=== PATIENT | female | born 1940 | race Asian ===

== ENCOUNTER 2018-11-26 11:57 | Outpatient (CLI) | payer MEDICARE, OTHER ==
[2018-11-26 18:57] LABS: ALBUMIN 3.9 g/dL (3.2-5.5); ALBUMIN/GLOBULIN RATIO 1.1 (1.0-2.2); BILIRUBIN,TOTAL 0.8 mg/dL (0.2-1.0); CREATININE 0.6 mg/dL (0.4-1.0); TOTAL PROTEIN 7.3 g/dL (6.7-8.2)
[2018-11-26 20:42] LABS: HB2 TOTAL 13.1 g/dL; HEMOGLOBIN A1C 0.75 g/dL; HEMOGLOBIN A1C % 7.4 % (4.6-6.2)
== END 2018-11-26 11:58 | disposition home or self-care (01) ==
LOC: LAB.WCP 11:57
PROVIDERS: ATTEND Family Medicine
DX: I10 Essential (primary) hypertension (principal); E11.9 Type 2 diabetes mellitus without complications; R71.8 Other abnormality of red blood cells; I71.2 Thoracic aortic aneurysm, without rupture
CPT/HCPCS: 36415; 80053; 83036

== ENCOUNTER 2018-12-19 13:08 | Outpatient (CLI) | payer MEDICARE, OTHER ==
--- NOTE | 2018-12-19 17:03 | Mammography Report ---
Reason: MULTINODULAR GOITER Procedure Date: 12/19/2018 Accession Number: [id number] / [id number] Procedure: MGN - Screening Mammo Dig Bilat CPT Code: FULL RESULT: EXAM: Screening Mammo Dig Bilat DATE: 12/19/2018 1:31 PM CLINICAL HISTORY: Routine screening. No reported personal or family history of breast cancer. TECHNIQUE: Bilateral CC and MLO views were obtained. COMPARISON: 12/01/2012 through 02/07/2010 FINDINGS: The breasts demonstrate scattered fibroglandular densities bilaterally. Bilateral breasts: There are no suspicious masses, calcifications or areas of distortion. IMPRESSION: Negative examination RECOMMENDATION: Routine annual screening unless otherwise clinically indicated. BI-RADS CATEGORY 1: Negative STANDARD QUALIFYING STATEMENTS: 1. This examination was reviewed with the aid of Computer-Aided Detection (CAD). 2. A negative or benign imaging report should not preclude biopsy if clinically suspicious findings are present. 3. Dense breasts may obscure an underlying neoplasm. 4. This examination was reviewed without the aid of 3D breast imaging (tomosynthesis).
== END 2018-12-19 13:09 | disposition home or self-care (01) ==
LOC: DI.N 13:08
DX: Z12.31 Encounter for screening mammogram for malignant neoplasm of breast (principal)
CPT/HCPCS: 77067

== ENCOUNTER 2019-02-26 22:42 | Outpatient (CLI) | payer MEDICARE, OTHER ==
--- NOTE | 2019-02-27 13:27 | Ultrasound Report ---
Reason: MULTINODULAR GOITER Procedure Date: 02/26/2019 Accession Number: [id number] / [id number] Procedure: US - Head or Neck Soft Tissue CPT Code: FULL RESULT: EXAM: THYROID ULTRASOUND EXAM DATE: 02/26/2019 10:52 PM. CLINICAL HISTORY: Multinodular goiter. COMPARISON: THYROID 05/26/2013 11:00 AM. TECHNIQUE: Real time sonographic imaging of the thyroid was performed by the wind farm designer. Multiple metals sales representative static images were saved for review. FINDINGS: THYROID GLAND: Right Lobe: 3.8 x 1.5 x 1.5 cm, volume 4.3 cc. Heterogeneous appearance of the thyroid parenchyma. Right Lobe Nodules: There is a confluent cluster of nodules in the superior pole, possibly a single 1.2 x 0.6 cm nodule with heterogeneous echotexture, dominant solid component and vascularity. Inferior pole 3 mm calcification is also noted. Left Lobe: 3.7 x 1.1 x 1.4 cm, volume 3.2 cc. Normal background echotexture. Left Lobe Nodules: Hypoechoic heterogeneous 1.0 x 0.6 x 1.0 cm nodule and hypoechoic heterogeneous 1.0 x 0.8 x 1.0 cm nodule. Isthmus: 0.2 cm AP. Isthmic Nodules: None. LYMPH NODES: No adenopathy demonstrated in the central or lateral compartment. OTHER: None. IMPRESSION: Heterogeneous appearance of the right thyroid lobe with an ill-defined upper pole nodule with a maximal dimension of at least 1.2 cm. Based on this morphologic appearance and heterogeneity of the right thyroid lobe without similar findings on the left, I recommend soft tissue sampling by ultrasound-guided FNA. Management recommendations are based on 2015 [place] [employer] Management Guidelines for Adult Patients with Thyroid Nodules and Differentiated Thyroid Cancer. RADIA
== END 2019-02-26 22:43 | disposition home or self-care (01) ==
LOC: DI 22:42
PROVIDERS: ATTEND Family Medicine
DX: E04.2 Nontoxic multinodular goiter (principal)
CPT/HCPCS: 76536

== ENCOUNTER 2019-05-01 13:20 | Outpatient (CLI) | payer MEDICARE, OTHER ==
[~2019-05-01 13:20] MED LIST: BUFFERED LIDOCAINE 10 ML SYRINGE ONE
[2019-05-01] MEDS ORDERED: BUFFERED LIDOCAINE 10 ML SYRINGE ONE (14:25)
[2019-05-01] MEDS ORDERED: BUFFERED LIDOCAINE 10 ML SYRINGE IU ONE (18:19)
--- NOTE | 2019-05-02 09:52 | Ultrasound Report ---
Reason: MULTINODULAR GOITER W/RECOMMENDATION FOR FNAB Procedure Date: 05/01/2019 Accession Number: [id number] / [id number] Procedure: US - FNA Bx w/US Gnd les CPT Code: 27223 FULL RESULT: EXAM: Thyroid Fine Needle Aspiration EXAM DATE: 05/01/2019 03:13 PM. CLINICAL HISTORY: Multinodular goiter w/recommendation for FNAB. COMPARISON: None. TECHNIQUE: The risks, benefits, and alternatives of the procedure were discussed with the patient. All questions were answered. Written and verbal consent were obtained. A site was marked over the right thyroid gland in question under live sonographic evaluation, then subsequently prepped and draped in a sterile manner. Local anesthesia was performed with 1% lidocaine. A total of 4 22 gauge fine-needle aspirates/passes were performed through the suspicious portion of the multinodular right thyroid gland in question, then passed to the grey percher for preparation. Estimated blood loss was 0 mL. Sonographic images demonstrate needle placement within suspicious nodular portion in question. FINDINGS IMPRESSION: Right thyroid gland FNA. RADIA
== END 2019-05-01 13:21 | disposition home or self-care (01) ==
LOC: DI 13:20
PROVIDERS: ATTEND Surgery
DX: E04.2 Nontoxic multinodular goiter (principal)
CPT/HCPCS: 10005

== ENCOUNTER 2019-09-24 09:58 | Outpatient (CLI) | payer MEDICARE, OTHER ==
--- NOTE | 2019-09-24 18:44 | XRAY Report ---
Reason: RIGHT SHOULDER PAIN Procedure Date: 09/24/2019 Accession Number: [id number] / [id number] Procedure: WCP - Shoulder 2 View RT CPT Code: Final Report FULL RESULT: EXAM: RIGHT SHOULDER RADIOGRAPHY EXAM DATE: 09/24/2019 09:58 AM. CLINICAL HISTORY: Chronic right shoulder pain. COMPARISON: SHOULDER 2 VIEW RT 10/11/2016 8:58 AM. TECHNIQUE: 2 views. FINDINGS: Bones: No acute traumatic or destructive bony abnormality. Lateral clavicle resection again noted. Joints: No dislocation. Marginal spurring at the glenohumeral joint. Soft tissues: The visualized hemithorax is unremarkable. No soft tissue calcification. IMPRESSION: 1. Degenerative spurring of the glenohumeral joint. 2. Lateral clavicle resection again noted. RADIA
--- NOTE | 2019-09-24 18:47 | XRAY Report ---
Reason: LEFT SHOULDER PAIN Procedure Date: 09/24/2019 Accession Number: [id number] / [id number] Procedure: WCP - Shoulder 2 View LT CPT Code: Final Report FULL RESULT: EXAM: LEFT SHOULDER RADIOGRAPHY EXAM DATE: 09/24/2019 09:58 AM. CLINICAL HISTORY: Chronic left shoulder pain. COMPARISON: SHOULDER 2 VIEW LT 08/09/2018 11:09 AM. TECHNIQUE: 2 views. FINDINGS: Bones: Normal. No fracture or bone lesion. Joints: No dislocation. Unremarkable glenohumeral joint. Stable degenerative changes of the acromioclavicular joint. Soft tissues: The visualized hemithorax is unremarkable. No soft tissue calcification. IMPRESSION: Stable degenerative changes of the acromioclavicular joint, otherwise unremarkable shoulder radiography. RADIA
== END 2019-09-24 23:59 | disposition home or self-care (01) ==
LOC: DI.WCP 09:58
PROVIDERS: ATTEND Family Medicine
DX: M75.81 Other shoulder lesions, right shoulder (principal); M19.012 Primary osteoarthritis, left shoulder

== ENCOUNTER 2019-12-30 10:36 | Outpatient (CLI) | payer MEDICARE, OTHER ==
[2019-12-30] MEDS ORDERED: BUFFERED LIDOCAINE 10 ML SYRINGE ONE (11:08)
[2019-12-30] MEDS ORDERED: IOTHALAMATE MEGLUMINE 50 ML VIAL ONE (11:08)
[2019-12-30] MEDS ORDERED: BUPIVACAINE 0.5% PF 10 ML VIAL IM ONE (12:06)
[2019-12-30] MEDS ORDERED: IOTHALAMATE MEGLUMINE 50 ML VIAL IVP ONE (12:06)
[2019-12-30] MEDS ORDERED: methylPREDNISolone ACETATE 80 MG/ML VIAL IM ONE (12:06)
[2019-12-30] MEDS ORDERED: BUFFERED LIDOCAINE 10 ML SYRINGE IU ONE (12:06)
--- NOTE | 2019-12-30 15:42 | XRAY Report ---
Reason: RT SHLDR PAIN Procedure Date: 12/30/2019 Accession Number: [id number] / [id number] Procedure: FL - Inj/Aspiration Major Joint CPT Code: Final Report FULL RESULT: EXAM: RIGHT SHOULDER Injection with Fluoroscopic Guidance EXAM DATE: 12/30/2019 11:21 AM. CLINICAL HISTORY: RT SHLDR PAIN. History of shoulder surgeries. Rotator cuff tear. COMPARISON: SHOULDER 2 VIEW RT 09/24/2019 9:36 AM. TECHNIQUE: The risks, benefits, and alternatives of the procedure were discussed with the patient. All questions were answered. Written and verbal consent were obtained. The right glenohumeral joint was marked under fluoroscopy and prepped and draped in a sterile manner. Local anesthesia was performed with 1% lidocaine. A 22-gauge needle was then inserted into the joint. Needle placement in the joint space was confirmed with injection of 2 mL of iodinated contrast. A solution containing 4 mL 0.5% ropivacaine, 4 mL 1% lidocaine, and 1 mL (80 mg/mL) Depo-Medrol was then injected. The needle was removed without immediate complication. Other: None. Fluoroscopy Time: 65 seconds. Number of fluoroscopy images: 3. FINDINGS: Bones and joints: No fracture. Superior subluxation of the humeral head with respect to the glenoid. Injection: Fluoroscopic images demonstrate needle placement and contrast in the right glenohumeral joint. IMPRESSION: Successful fluoroscopically guided injection of anesthetic and steroid in the right glenohumeral joint with decrease of the patients pain. RADIA
== END 2019-12-30 10:37 | disposition home or self-care (01) ==
LOC: DI 10:36
PROVIDERS: ATTEND Orthopaedic Surgery Sports Medicine
DX: M25.511 Pain in right shoulder (principal)
CPT/HCPCS: 20610; Q9961

== ENCOUNTER 2020-01-22 09:35 | Outpatient (CLI) | payer MEDICARE, OTHER ==
[2020-01-22 11:58] LABS: BASOPHILS # (AUTO) 0.1 10^3/uL (0.0-0.1); BASOPHILS % (AUTO) 1.1 %; EOSINOPHILS # (AUTO) 0.2 10^3/uL (0.0-0.7); HGB - HEMOGLOBIN 11.7 g/dL (12.0-16.0); LYMPHOCYTES # (AUTO) 2.9 10^3/uL (1.5-3.5); LYMPHOCYTES % (AUTO) 36.5 %; MEAN CORPUSCULAR HGB CONC 29.8 g/dL (32.0-36.0); MEAN CORPUSCULAR VOLUME 70.7 fL (81.0-99.0); MEAN PLATELET VOLUME 10.6 fL (7.9-10.8); MONOCYTES # (AUTO) 0.5 10^3/uL (0.0-1.0); MONOCYTES % (AUTO) 6.4 %; NEUTROPHILS # (AUTO) 4.2 10^3/uL (1.5-6.6); NEUTROPHILS % (AUTO) 52.6 %; PLT - PLATELET COUNT 197 10^3/uL (130-450); RED BLOOD COUNT 5.56 10^6/uL (4.20-5.40); RED CELL DISTRIBUTION WIDTH 16.5 % (12.0-15.0)
[2020-01-22 12:03] LABS: MICROALBUM/CREATININE RATIO,UR 11.7 ug/mg (<30.0); MICROALBUMIN,URINE 2.4 mg/dL (0-300.0)
[2020-01-22 12:05] LABS: ALBUMIN 3.9 g/dL (3.2-5.5); ALBUMIN/GLOBULIN RATIO 1.3 (1.0-2.2); ALKALINE PHOSPHATASE 41 IU/L (42-121); ALT ALANINE AMINOTRANSFERASE 16 IU/L (10-60); AST ASPARTATE AMINOTRANSFERASE 19 IU/L (10-42); BILIRUBIN,TOTAL 0.7 mg/dL (0.2-1.0); BUN - BLOOD UREA NITROGEN 19 mg/dL (6-20); CALCIUM 8.9 mg/dL (8.5-10.3); CARBON DIOXIDE - CO2 27 mmol/L (21-32); CHLORIDE 106 mmol/L (101-111); CHOL/HDL RATIO 2.3 (<4.4); CHOLESTEROL 179 mg/dL; CREATININE 0.7 mg/dL (0.4-1.0); GLUCOSE 92 mg/dL (70-100); HDL CHOLESTEROL 78 mg/dL; LDL CHOLESTEROL,CALCULATED 77 mg/dL; SODIUM 140 mmol/L (135-145); TOTAL PROTEIN 6.9 g/dL (6.7-8.2); VLDL CHOLESTEROL 24 mg/dL
[2020-01-22 13:11] LABS: HB2 TOTAL 11.9 g/dL; HEMOGLOBIN A1C 0.63 g/dL
== END 2020-01-22 23:59 | disposition home or self-care (01) ==
LOC: LAB.WCP 09:35
PROVIDERS: ATTEND Family Medicine
DX: E04.2 Nontoxic multinodular goiter (principal); E11.9 Type 2 diabetes mellitus without complications; I10 Essential (primary) hypertension
CPT/HCPCS: 36415; 80053; 80061; 82043; 82570; 83036; 83721; 84443; 85025

== ENCOUNTER 2020-03-24 11:36 | Outpatient (CLI) | payer MEDICARE, OTHER ==
[2020-03-24 19:01] LABS: BASOPHILS # (AUTO) 0.1 10^3/uL (0.0-0.1); BASOPHILS % (AUTO) 1.2 %; EOSINOPHILS # (AUTO) 0.2 10^3/uL (0.0-0.7); EOSINOPHILS % (AUTO) 2.9 %; HGB - HEMOGLOBIN 11.3 g/dL (12.0-16.0); LYMPHOCYTES # (AUTO) 2.2 10^3/uL (1.5-3.5); MEAN CORPUSCULAR HEMOGLOBIN 21.6 pg (27.0-31.0); MEAN CORPUSCULAR HGB CONC 30.3 g/dL (32.0-36.0); MEAN CORPUSCULAR VOLUME 71.5 fL (81.0-99.0); MEAN PLATELET VOLUME 10.3 fL (7.9-10.8); MONOCYTES # (AUTO) 0.6 10^3/uL (0.0-1.0); MONOCYTES % (AUTO) 8.3 %; NEUTROPHILS # (AUTO) 4.1 10^3/uL (1.5-6.6); NEUTROPHILS % (AUTO) 57.2 %; PLT - PLATELET COUNT 199 10^3/uL (130-450); RED BLOOD COUNT 5.22 10^6/uL (4.20-5.40); RED CELL DISTRIBUTION WIDTH 16.6 % (12.0-15.0); WHITE BLOOD COUNT 7.2 x10^3/uL (4.8-10.8)
[2020-03-24 19:10] LABS: % IRON SATURATION 25 % (20-50); IRON 76 ug/dL (28-170); TOTAL IRON BINDING CAPACITY 308 ug/dL (250-450); TRANSFERRIN 220 mg/dL (192-382)
[2020-03-24 19:17] LABS: FERRITIN 139.3 ng/mL (11.0-306.8)
== END 2020-03-24 23:59 | disposition home or self-care (01) ==
LOC: LAB.WCP 11:36
PROVIDERS: ATTEND Family Medicine
DX: L65.9 Nonscarring hair loss, unspecified (principal)
CPT/HCPCS: 36415; 82728; 83540; 84443; 84466; 85025

== ENCOUNTER 2020-11-04 18:07 | Outpatient (CLI) | payer MEDICARE, OTHER ==
--- NOTE | 2020-11-04 17:21 | XRAY Report ---
PROCEDURE: Shoulder 3 View BILAT INDICATIONS: R AND L SHOULDER PX TECHNIQUE: 4 views of each shoulder acquired. COMPARISON: 09/24/2019. FINDINGS: Bones: No fractures or dislocations. There is bilateral glenohumeral joint degeneration, moderate t o severe on the right and mild on the left. There is superior migration of the humeral heads bilatera lly, right greater than left, with eburnation along the inferior acromion suggestive of rotator cuff tearing. Moderate acromial clavicular joint generation is demonstrated on the left. There is prior rey rgical resection of the distal clavicle on the right. No suspicious bony lesions. Visualized ribs ap pear intact. Soft tissues: No suspicious soft tissue calcifications. IMPRESSION: 1. Bilateral glenohumeral joint degeneration, moderate to severe on the right and mild on the left. F indings appear slightly increased on the right compared to the prior study. 2. Moderate left acromioclavicular joint degeneration also appears increased from the prior study. 3. Superior migration of the humeral heads bilaterally suggestive of rotator cuff tearing. Reviewed by: Dipak Sanders MD on 11/04/2020 5:19 PM PST Approved by: Dipak Sanders MD on 11/04/2020 5:19 PM PST Station ID: [id number]
== END 2020-11-04 23:59 | disposition home or self-care (01) ==
LOC: DI.N 18:07
PROVIDERS: ATTEND Physician Assistant
DX: M19.012 Primary osteoarthritis, left shoulder (principal); M19.011 Primary osteoarthritis, right shoulder; R93.6 Abnormal findings on diagnostic imaging of limbs

== ENCOUNTER 2021-03-24 11:16 | Outpatient (CLI) | payer MEDICARE, OTHER ==
[2021-03-24 17:49] LABS: BASOPHILS # (AUTO) 0.1 10^3/uL (0.0-0.1); BASOPHILS % (AUTO) 1.4 %; EOSINOPHILS # (AUTO) 0.3 10^3/uL (0.0-0.7); EOSINOPHILS % (AUTO) 3.8 %; HCT - HEMATOCRIT 36.9 % (37.0-47.0); HGB - HEMOGLOBIN 11.1 g/dL (12.0-16.0); LYMPHOCYTES # (AUTO) 2.2 10^3/uL (1.5-3.5); LYMPHOCYTES % (AUTO) 33.4 %; MEAN CORPUSCULAR HEMOGLOBIN 21.2 pg (27.0-31.0); MEAN CORPUSCULAR HGB CONC 30.1 g/dL (32.0-36.0); MEAN CORPUSCULAR VOLUME 70.4 fL (81.0-99.0); MEAN PLATELET VOLUME 11.4 fL (7.9-10.8); MONOCYTES # (AUTO) 0.5 10^3/uL (0.0-1.0); MONOCYTES % (AUTO) 8.2 %; NEUTROPHILS # (AUTO) 3.5 10^3/uL (1.5-6.6); PLT - PLATELET COUNT 176 10^3/uL (130-450); RED BLOOD COUNT 5.24 10^6/uL (4.20-5.40); RED CELL DISTRIBUTION WIDTH 16.1 % (12.0-15.0); WHITE BLOOD COUNT 6.6 x10^3/uL (4.8-10.8)
[2021-03-24 17:57] LABS: ALBUMIN 4.1 g/dL (3.2-5.5); ALBUMIN/GLOBULIN RATIO 1.4 (1.0-2.2); ALKALINE PHOSPHATASE 46 IU/L (42-121); ALT ALANINE AMINOTRANSFERASE 16 IU/L (10-60); AST ASPARTATE AMINOTRANSFERASE 24 IU/L (10-42); BILIRUBIN,TOTAL 0.6 mg/dL (0.2-1.0); BUN - BLOOD UREA NITROGEN 17 mg/dL (6-20); CALCIUM 9.5 mg/dL (8.5-10.3); CARBON DIOXIDE - CO2 27 mmol/L (21-32); CHLORIDE 106 mmol/L (101-111); CHOL/HDL RATIO 2.4 (<4.4); CHOLESTEROL 152 mg/dL; CREATININE 0.7 mg/dL (0.4-1.0); GFR - MDRD 81 (>89); GLUCOSE 90 mg/dL (70-100); HDL CHOLESTEROL 63 mg/dL; LDL CHOLESTEROL,CALCULATED 75 mg/dL; LDL/HDL RATIO 1.2 (<4.4); POTASSIUM 4.4 mmol/L (3.5-5.0); SODIUM 141 mmol/L (135-145); TRIGLYCERIDES 69 mg/dL; VLDL CHOLESTEROL 14 mg/dL
[2021-03-24 18:11] LABS: THYROID STIMULATING HORMONE 1.8 uIU/mL (0.34-5.60)
[2021-03-24 20:06] LABS: ESTIMATED AVERAGE GLUCOSE 131 mg/dL (70-100); HEMOGLOBIN A1c% 6.2 % (4.27-6.07)
== END 2021-03-24 11:17 | disposition home or self-care (01) ==
LOC: LAB.N 11:16
PROVIDERS: ATTEND Nurse Practitioner Family
DX: I10 Essential (primary) hypertension (principal); E11.9 Type 2 diabetes mellitus without complications; D64.9 Anemia, unspecified; E04.1 Nontoxic single thyroid nodule
CPT/HCPCS: 36415; 80053; 80061; 82043; 82570; 83036; 83721; 84443; 85025

== ENCOUNTER 2021-04-13 09:36 | Outpatient (CLI) | payer MEDICARE, OTHER ==
--- NOTE | 2021-04-13 14:24 | Ultrasound Report ---
PROCEDURE: Head or Neck Soft Tissue INDICATIONS: THYROID NODULE TECHNIQUE: Real-time scanning was performed of the thyroid gland, with image documentation. COMPARISON: 02/26/2019 ultrasound. FINDINGS: Right: Thyroid lobe measures 4.1 x 1.9 x 1.3 cm. Left: Thyroid lobe measures 4.1 x 1.3 x 1.6 cm. Isthmus: 2 mm thick. Nodule number: One Location: Right superior lateral thyroid Size: 0.5 x 0.3 x 0.6 cm. Composition: Solid Echogenicity: Hypoechoic Shape: wider than tall. Margins: Smooth Echogenic foci: Punctate Total points: 7 ACR TI-RADS category: 5 Nodule number: Two Location: Right superior medial Size: 0.5 x 0.4 x 0.4 cm. Composition: Solid Echogenicity: Hypoechoic Shape: wider than tall. Margins: Size Echogenic foci: None Total points: 4 ACR TI-RADS category: 4 Nodule number: Three Location: Right superolateral thyroid Size: 0.5 x 0.3 x 0.5 cm. Composition: Solid Echogenicity: Hypoechoic Shape: wider than tall. Margins: Smooth Echogenic foci: None Total points: 4 ACR TI-RADS category: 4 Nodule number: Four Location: Left anterosuperior Size: 1.0 x 0.6 x 0.9 cm. Composition: Solid Echogenicity: Hypoechoic Shape: wider than tall. Margins: Smooth Echogenic foci: None Total points: 4 ACR TI-RADS category: 4 Nodule number: 5 Location: Left mid and anterior thyroid Size: 1.1 x 0.8 x 0.9 cm. Composition: Solid Echogenicity: Hypoechoic Shape: wider than tall. Margins: Smooth Echogenic foci: None Total points: 4 ACR TI-RADS category: 4 IMPRESSION: 1. Bilateral thyroid nodules as described above. Follow-up in one year recommended. ACR TI-RADS definitions and recommendations: TI-RADS 1 (benign): 0 points. FNA not needed. TI-RADS 2 (not suspicious): 2 points. FNA not needed. TI-RADS 3 (mildly suspicious): 3 points. ? FNA if 2.5 cm or larger, follow up if 1.5 cm or larger (at 1, 3, and 5 years). TI-RADS 4 (moderately suspicious): 4-6 points. ? FNA if 1.5 cm or larger, follow up if 1 cm or larger (at 1, 2, 3, and 5 years). TI-RADS 5 (highly suspicious): 7 points or more. ? FNA if 1 cm or larger, follow up if 0.5 cm or larger (every year for 5 years). Reviewed by: Imani Ferguson MD on 04/13/2021 2:23 PM PDT Approved by: Imani Ferguson MD on 04/13/2021 2:23 PM PDT Station ID: [id number]
== END 2021-04-13 09:37 | disposition home or self-care (01) ==
LOC: DI 09:36
PROVIDERS: ATTEND Physician Assistant Medical
DX: E04.2 Nontoxic multinodular goiter (principal); R07.81 Pleurodynia

== ENCOUNTER 2021-04-13 15:18 | Outpatient (CLI) | payer MEDICARE, OTHER ==
--- NOTE | 2021-04-13 16:16 | XRAY Report ---
PROCEDURE: Ribs w/PA Chest LT INDICATIONS: L SIDED RIB PX TECHNIQUE: 3 views of the left ribs were acquired, along with a single view chest. COMPARISON: None FINDINGS: Surgical changes and devices: None. Bones and chest wall: No fractures or dislocations. No suspicious bony lesions. Overlying soft tis sues appear unremarkable. Lungs and pleura: No pleural effusions or pneumothorax. Lungs appear clear. Mediastinum: Mediastinal contours appear normal. Heart size is normal. IMPRESSION: 1. No acute process. 2. No acute fracture. No osseous lesion. If symptoms and/or clinical suspicion for pathology continue , further assessment with repeat plain films, or advanced imaging (e.g., CT or bone scan) is recommen ded for further assessment. Reviewed by: Imani Ferguson MD on 04/13/2021 4:15 PM PDT Approved by: Imani Ferguson MD on 04/13/2021 4:15 PM PDT Station ID: [id number]
== END 2021-04-13 23:59 | disposition home or self-care (01) ==
LOC: DI.N 15:18
PROVIDERS: ATTEND Family Medicine
DX: R07.81 Pleurodynia (principal)

== ENCOUNTER 2021-04-22 16:53 | Outpatient (CLI) | payer MEDICARE, OTHER ==
--- NOTE | 2021-04-22 17:18 | XRAY Report ---
PROCEDURE: Ribs w/PA Chest RT INDICATIONS: RIB PAIN, RIGHT SIDE TECHNIQUE: 3 views of the right ribs were acquired, along with a single view chest. COMPARISON: 04/13/2021 FINDINGS: Surgical changes and devices: None. Bones and chest wall: No fractures or dislocations. No suspicious bony lesions. Overlying soft tis sues appear unremarkable. Lungs and pleura: No pleural effusions or pneumothorax. Lungs appear clear. Mediastinum: Mildly tortuous thoracic aorta is seen. Heart size is enlarged. IMPRESSION: No obvious displaced rib fracture is seen. No acute cardiopulmonary pathology. Reviewed by: Herbie Johnson MD on 04/22/2021 5:16 PM PDT Approved by: Herbie Johnson MD on 04/22/2021 5:16 PM PDT Station ID: [id number]
== END 2021-04-22 23:59 | disposition home or self-care (01) ==
LOC: DI.N 16:53
PROVIDERS: ATTEND Emergency Medicine
DX: R07.81 Pleurodynia (principal)

== ENCOUNTER 2021-04-29 16:27 | Outpatient (CLI) | payer MEDICARE, OTHER ==
--- NOTE | 2021-04-29 16:55 | XRAY Report ---
PROCEDURE: Hip w/Pelvis 2-3V RT INDICATIONS: STRAIN OF MUSCLE, FASCIA, AND TENDON OF RIGHT HIP TECHNIQUE: AP pelvis with lateral view(s) of the bilateral hip(s). COMPARISON: None. FINDINGS: Bones: No fractures or dislocations. Pelvic ring appears intact. No suspicious bony lesions. Mode rate hip joint space narrowing and periarticular osteophyte formation bilaterally. Mild periarticular osteophyte formation at the sacroiliac joints. Soft tissues: The visualized bowel gas pattern is normal. No suspicious soft tissue calcifications. IMPRESSION: Bilateral sacroiliac and hip joint osteoarthritis. No acute fracture. No osseous lesion. If symptoms and/or clinical suspicion for pathology continue, further assessment with repeat plain f ilms, or advanced imaging (e.g., CT, MRI, or bone scan) is recommended for further assessment.. Reviewed by: Imani Ferguson MD on 04/29/2021 4:53 PM PDT Approved by: Imani Ferguson MD on 04/29/2021 4:53 PM PDT Station ID: [id number]
== END 2021-04-29 16:28 | disposition home or self-care (01) ==
LOC: DI.N 16:27
PROVIDERS: ATTEND Family Medicine
DX: M47.898 Other spondylosis, sacral and sacrococcygeal region (principal); M16.0 Bilateral primary osteoarthritis of hip

== ENCOUNTER 2021-10-25 11:34 | Outpatient (CLI) | payer MEDICARE, OTHER ==
[2021-10-25 18:12] LABS: BASOPHILS # (AUTO) 0.1 10^3/uL (0.0-0.1); BASOPHILS % (AUTO) 1.6 %; EOSINOPHILS # (AUTO) 0.2 10^3/uL (0.0-0.7); EOSINOPHILS % (AUTO) 3.2 %; HCT - HEMATOCRIT 37.1 % (37.0-47.0); HGB - HEMOGLOBIN 11.1 g/dL (12.0-16.0); LYMPHOCYTES # (AUTO) 1.8 10^3/uL (1.5-3.5); LYMPHOCYTES % (AUTO) 35.1 %; MEAN CORPUSCULAR HEMOGLOBIN 20.6 pg (27.0-31.0); MEAN CORPUSCULAR HGB CONC 29.9 g/dL (32.0-36.0); MEAN CORPUSCULAR VOLUME 68.7 fL (81.0-99.0); MEAN PLATELET VOLUME 10.8 fL (7.9-10.8); MONOCYTES # (AUTO) 0.4 10^3/uL (0.0-1.0); MONOCYTES % (AUTO) 7.1 %; NEUTROPHILS # (AUTO) 2.7 10^3/uL (1.5-6.6); NEUTROPHILS % (AUTO) 52.8 %; PLT - PLATELET COUNT 203 10^3/uL (130-450); RED CELL DISTRIBUTION WIDTH 16.1 % (12.0-15.0)
[2021-10-25 18:43] LABS: ALBUMIN 3.9 g/dL (3.2-5.5); ALBUMIN/GLOBULIN RATIO 1.3 (1.0-2.2); ALKALINE PHOSPHATASE 49 IU/L (42-121); ALT ALANINE AMINOTRANSFERASE 21 IU/L (10-60); AST ASPARTATE AMINOTRANSFERASE 25 IU/L (10-42); BILIRUBIN,TOTAL 0.7 mg/dL (0.2-1.0); BUN - BLOOD UREA NITROGEN 20 mg/dL (6-20); CALCIUM 9.5 mg/dL (8.5-10.3); CARBON DIOXIDE - CO2 27 mmol/L (21-32); CHLORIDE 107 mmol/L (101-111); CHOLESTEROL 155 mg/dL; CREATININE 0.8 mg/dL (0.4-1.0); GFR - MDRD 69 (>89); GLUCOSE 92 mg/dL (70-100); HDL CHOLESTEROL 52 mg/dL; LDL CHOLESTEROL,CALCULATED 85 mg/dL; LDL/HDL RATIO 1.6 (<4.4); POTASSIUM 4.5 mmol/L (3.5-5.0); SODIUM 141 mmol/L (135-145); TRIGLYCERIDES 91 mg/dL; VLDL CHOLESTEROL 18 mg/dL
[2021-10-25 18:53] LABS: CREATININE,URINE 141.6 mg/dL; MICROALBUM/CREATININE RATIO,UR 4.2 ug/mg (<30.0); MICROALBUMIN,URINE 0.6 mg/dL (0-300.0)
[2021-10-25 20:55] LABS: ESTIMATED AVERAGE GLUCOSE 137 mg/dL (70-100); HEMOGLOBIN A1c% 6.4 % (4.27-6.07)
== END 2021-10-25 23:59 | disposition home or self-care (01) ==
LOC: LAB.WCP 11:34
PROVIDERS: ATTEND Physician Assistant Medical
DX: E11.9 Type 2 diabetes mellitus without complications (principal); D64.9 Anemia, unspecified
CPT/HCPCS: 36415; 80053; 80061; 82043; 82570; 83036; 83721; 85025

== ENCOUNTER 2021-12-19 08:00 | Outpatient (CLI) | payer MEDICARE, OTHER | END 2021-12-19 23:59 | LOC: LAB.N 08:00 | PROVIDERS: ATTEND Family Medicine | DX: N39.0 Urinary tract infection, site not specified (principal) | CPT/HCPCS: 87086; 87181 ==

== ENCOUNTER 2021-12-27 09:22 | Outpatient (CLI) | payer MEDICARE, OTHER ==
--- NOTE | 2021-12-27 10:55 | CT Report ---
PROCEDURE: Low Dose Lung Cancer Screen INDICATIONS: CHRONIC COUGH TECHNIQUE: Noncontrast low-dose images were acquired from the pulmonary apices to the posterior costophrenic ang les. Multiplanar MIP reformats were then acquired. For radiation dose reduction, the following was used: automated exposure control, adjustment of mA and/or kV according to patient size. COMPARISON: October 03, 2011. FINDINGS: Thyroid: Homogeneous. Vasculature: Dilatation of the ascending aorta, measuring up to 4.2 cm; previously measuring 4.1 cm. Mild calcified edematous change. Heart: No cardiomegaly or pericardial effusion. Mediastinum/odette: No pathologically enlarged lymph nodes by size criteria. Lung/pleura: No consolidation, pleural effusion, or pneumothorax. A 5 mm pleural-based nodule is seen in the left lower lobe. Faint nodular densities are seen in the l ower lobes, which may reflect a post infectious or inflammatory process. Tracheobronchial tree: Patent. Diffuse dilatation of the bronchials. Upper abdomen: No acute abnormality. Cholelithiasis. Bones: Multifocal degenerative change. Chest wall: No significant abnormality. IMPRESSION: 1.Bronchiectasis. 2.Faint nodular densities in the lower lobes, concerning for a post infectious or inflammatory proces s versus interstitial change. Reviewed by: Patrick Cohen MD on 12/27/2021 10:54 AM PDT Approved by: Patrick Cohen MD on 12/27/2021 10:54 AM PDT Station ID: [id number]
== END 2021-12-27 09:23 | disposition home or self-care (01) ==
LOC: DI 09:22
PROVIDERS: ATTEND Physician Assistant Medical
DX: J47.9 Bronchiectasis, uncomplicated (principal); R91.8 Other nonspecific abnormal finding of lung field

== ENCOUNTER 2022-10-11 19:39 | Emergency (ER) | payer MEDICARE, OTHER ==
--- NOTE | 2022-10-11 20:12 | ED Physician Documentation ---
History of Present Illness - Stated complaint Stated Complaint: POSS TYLENOL OD - Chief complaint Chief Complaint: General - History obtained from History obtained from: Patient - History of Present Illness Timing: Today, Yesterday - Additonal information Additional information: HPI from patient. Patient presents due to concern that she overdosed accidentally on acetaminophen. Patient says she has been having a few days of generalized body aches, sore throat, nonproductive cough, sinus congestion. For the symptoms, patient has been taking acetaminophen 500 mg tablets. Patient says she estimates that since last night she has taken 12 or 13 of these 500 mg tablets of acetaminophen. She says she was only taking 1 to 2 tablets per dose but cannot say how many hours apart they were except to say that she has taken 12 or 13 tablets from sometime last night until most recent dosing at 3 PM today. It then occurred to her that she took too much, and thus she called her primary care provider, and the answering service recommended she come to the emergency department for evaluation. Patient denies fever, denies abdominal pain, denies nausea vomiting. Patient says she has no known liver disease. Patient denies any heavy or regular drinking alcohol. Review of Systems Constitutional: denies: Fever GI: denies: Abdominal Pain, Nausea, Vomiting PD PAST MEDICAL HISTORY - Past Medical History Cardiovascular: Hypertension, High cholesterol Endocrine/Autoimmune: Type 2 diabetes - Past Surgical History Past Surgical History: Yes General: Appendectomy /GENERAL MAGISTRATE: Tubal ligation - Present Medications Home Medications: Ambulatory Orders Medication Instructions Recorded Confirmed Aspirin EC [Ecotrin] 81 mg PO DAILY 03/30/13 11/09/14 Cholecalciferol (Vitamin D3) 2,000 unit PO DAILY 03/30/13 11/09/14 [Vitamin D] Hydroxyzine HCl 25 mg PO HS PRN 03/30/13 11/09/14 Metformin HCl [Fortamet] 1,000 mg PO DAILY 03/30/13 11/09/14 Rosuvastatin Calcium [Crestor] 5 mg PO DAILY 03/30/13 11/09/14 Gabapentin 100 mg PO TID 11/09/14 11/09/14 Naproxen 500 mg PO BID #20 tablet. 11/09/14 Telmisartan [Micardis] 20 mg PO DAILY 11/09/14 11/09/14 Cyclobenzaprine [Flexeril] 10 mg PO TID PRN #20 tablet 02/19/16 - Allergies Allergies/Adverse Reactions: Allergies Allergy/AdvReac Type Severity Reaction Status Date / Time atenolol Allergy vomiting Verified 10/11/22 19:48 ciprofloxacin [From Cipro] Allergy vomiting Verified 10/11/22 19:48 ciprofloxacin HCl * Allergy vomiting Verified 10/11/22 19:48 [From Cipro] ibuprofen [From Motrin] Allergy Hives Verified 10/11/22 19:48 - Social History Does the pt smoke?: Yes Smoking Status: Former smoker Does the pt drink ETOH?: No Does the pt have substance abuse?: No - Immunizations Immunizations are current?: Yes PD ED PE NORMAL - Vitals Vital signs reviewed: Yes - General General: Alert and oriented X 3, No acute distress, Well developed/nourished - Abdomen Abdomen: Soft, Non tender - Derm Derm: Normal color PD ED PE EXPANDED - Eyes Eyes: Nl conjunctiva/sclera. No: Scleral icterus Results - Vitals Vitals: Vital Signs - 24 hr 10/11/22 10/11/22 10/11/22 19:43 20:04 21:20 Temperature 36.9 C Heart Rate 95 102 H 95 Respiratory 18 16 18 Rate Blood Pressure 141/57 H 117/72 114/74 O2 Saturation 97 98 96 Oxygen O2 Source Room air - Labs Labs: Laboratory Tests 10/11/22 10/11/22 20:07 20:07 PT 11.8 INR 1.1 Sodium 135 Potassium 3.9 Chloride 99 L Carbon Dioxide 26 Anion Gap 10.0 BUN 14 Creatinine 0.8 Estimated GFR (MDRD) 69 L Glucose 150 H Calcium 8.8 Total Bilirubin 0.9 AST 20 ALT 15 Alkaline Phosphatase 53 Total Protein 7.4 Albumin 4.0 Globulin 3.4 Albumin/Globulin Ratio 1.2 Lipase 53 H Salicylates < 6.0 Acetaminophen < 10 L PD Medical Decision Making - ED course Complexity details: reviewed results, re-evaluated patient, considered differential, d/w patient Reviewed Lab Results: Reviewed the ordered labs which included acetaminophen level, salicylate level, ER abdominal panel, PT. ED course: HPI is from patient. I reviewed the test results which consisted of acetaminophen level, ER abdominal panel, PT, and salicylate level. Her acetaminophen level is undetectable (less than 10). Her liver function tests are all normal. Given that her last dose of acetaminophen was at 3 PM today, and that she is asymptomatic, no further emergent testing nor observation Is needed, nor is any treatment. I reviewed proper use of acetaminophen regarding dosing with the patient. Departure - Departure Disposition: 01 Home, Self Care Clinical Impression: Unintentional Tylenol overdose Qualifiers: Encounter type: initial encounter Qualified Code(s): T39.1X1A - Poisoning by 4- Aminophenol derivatives, accidental (unintentional), initial encounter Condition: Good Instructions: ED Overdose Accidental Comments: As we discussed, the results of your blood tests are quite reassuring. Your blood Tylenol level was undetectable, and your liver function tests were completely normal (in a dangerous Tylenol overdose, the liver is affected and within 1 to 2 days, the liver function tests become abnormal. The combination of an undetectable Tylenol level and normal liver function tests is the reassurance needed to clear you for discharge home). As we discussed, I would recommend that you not take any more Tylenol tonight, but there is no reason you cannot resume taking Tylenol (acetaminophen) starting tomorrow morning. Only take the acetaminophen as needed and strictly as per label instructions. The maximum daily dose (The maximum dose one can take with in a 24-hour period), is 3 grams (3,000 mg). If you are taking 500 mg tablets of Tylenol, this would be a total of 6 tablets in a 24-hour period. However, as per the label instructions, do not take more than two 500mg tablets at a time, and no closer than every six hours. Since the maximum dose per 24 hours is 6 tablets, if you are taking 2 tablets every 6 hours, you would need to skip one of the six hour doses; alternatively, you can take two tablets every 8 hours to keep the dose within the 3,000mg per 24 hour guideline. Discharge Date/Time: 10/11/22 21:21
[2022-10-11 20:24] LABS: INR 1.1 (0.8-1.2); PT - PROTHROMBIN TIME 11.8 secs (9.9-12.6)
[2022-10-11 20:32] LABS: ACETAMINOPHEN < 10 ug/mL (10-30); ALBUMIN/GLOBULIN RATIO 1.2 (1.0-2.2); ALKALINE PHOSPHATASE 53 IU/L (42-121); ALT ALANINE AMINOTRANSFERASE 15 IU/L (10-60); AST ASPARTATE AMINOTRANSFERASE 20 IU/L (10-42); BILIRUBIN,TOTAL 0.9 mg/dL (0.2-1.0); BUN - BLOOD UREA NITROGEN 14 mg/dL (6-20); CALCIUM 8.8 mg/dL (8.5-10.3); CARBON DIOXIDE - CO2 26 mmol/L (21-32); CHLORIDE 99 mmol/L (101-111); CREATININE 0.8 mg/dL (0.4-1.0); GFR - MDRD 69 (>89); GLUCOSE 150 mg/dL (70-100); LIPASE 53 U/L (22-51); POTASSIUM 3.9 mmol/L (3.5-5.0); SALICYLATE < 6.0 mg/dL; SODIUM 135 mmol/L (135-145); TOTAL PROTEIN 7.4 g/dL (6.7-8.2)
[2022-10-11 21:22] VITALS: BP 114/74
== END 2022-10-11 21:21 | disposition home or self-care (01) ==
LOC: ED 19:39
DX: T39.1X1A Poisoning by 4-Aminophenol derivatives, accidental (unintentional), initial encounter (principal); R05.9 Cough, unspecified; R07.0 Pain in throat; I10 Essential (primary) hypertension; E11.9 Type 2 diabetes mellitus without complications; Z87.891 Personal history of nicotine dependence
CPT/HCPCS: 36415; 80053; 80307; 83690; 85610; 99283; G0480; 80329

== ENCOUNTER 2023-01-29 12:26 | Outpatient (CLI) | payer MEDICARE, OTHER ==
[2023-01-29 17:51] LABS: BASOPHILS # (AUTO) 0.1 10^3/uL (0.0-0.1); BASOPHILS % (AUTO) 1.5 %; EOSINOPHILS # (AUTO) 0.3 10^3/uL (0.0-0.7); EOSINOPHILS % (AUTO) 5.1 %; HCT - HEMATOCRIT 39.9 % (37.0-47.0); LYMPHOCYTES # (AUTO) 2.6 10^3/uL (1.5-3.5); LYMPHOCYTES % (AUTO) 39.6 %; MEAN CORPUSCULAR HEMOGLOBIN 20.7 pg (27.0-31.0); MEAN CORPUSCULAR HGB CONC 30.1 g/dL (32.0-36.0); MEAN CORPUSCULAR VOLUME 68.9 fL (81.0-99.0); MONOCYTES # (AUTO) 0.5 10^3/uL (0.0-1.0); MONOCYTES % (AUTO) 7.7 %; NEUTROPHILS % (AUTO) 45.8 %; PLT - PLATELET COUNT 182 10^3/uL (130-450); RED BLOOD COUNT 5.79 10^6/uL (4.20-5.40); RED CELL DISTRIBUTION WIDTH 17.4 % (12.0-15.0); WHITE BLOOD COUNT 6.6 x10^3/uL (4.8-10.8)
[2023-01-29 18:24] LABS: ALBUMIN/GLOBULIN RATIO 1.2 (1.0-2.2); ALKALINE PHOSPHATASE 51 IU/L (42-121); ALT ALANINE AMINOTRANSFERASE 14 IU/L (10-60); AST ASPARTATE AMINOTRANSFERASE 22 IU/L (10-42); BILIRUBIN,TOTAL 0.9 mg/dL (0.2-1.0); BUN - BLOOD UREA NITROGEN 20 mg/dL (6-20); CALCIUM 9.7 mg/dL (8.5-10.3); CARBON DIOXIDE - CO2 29 mmol/L (21-32); CHLORIDE 107 mmol/L (101-111); CHOL/HDL RATIO 2.6 (<4.4); CHOLESTEROL 153 mg/dL; CREATININE 0.8 mg/dL (0.4-1.0); GFR - MDRD 69 (>89); GLUCOSE 97 mg/dL (70-100); HDL CHOLESTEROL 58 mg/dL; LDL CHOLESTEROL,CALCULATED 80 mg/dL; LDL/HDL RATIO 1.4 (<4.4); POTASSIUM 4.5 mmol/L (3.5-5.0); SODIUM 142 mmol/L (135-145); TOTAL PROTEIN 7.4 g/dL (6.7-8.2); TRIGLYCERIDES 76 mg/dL; VLDL CHOLESTEROL 15 mg/dL
[2023-01-29 18:34] LABS: THYROID STIMULATING HORMONE 1.74 uIU/mL (0.34-5.60)
[2023-01-29 20:38] LABS: ESTIMATED AVERAGE GLUCOSE 134 mg/dL (70-100); HEMOGLOBIN A1c% 6.3 % (4.27-6.07)
== END 2023-01-29 12:27 | disposition home or self-care (01) ==
LOC: LAB.N 12:26
PROVIDERS: ATTEND Physician Assistant Medical
DX: E78.5 Hyperlipidemia, unspecified (principal); E11.9 Type 2 diabetes mellitus without complications; E04.1 Nontoxic single thyroid nodule; D64.9 Anemia, unspecified
CPT/HCPCS: 36415; 80053; 80061; 83036; 83721; 84443; 85025

== ENCOUNTER 2023-02-21 09:23 | Outpatient (CLI) | payer MEDICARE, OTHER ==
--- NOTE | 2023-02-21 12:50 | DEXA Report ---
PROCEDURE: Dexa Spine and/or Hip INDICATIONS: POST MENOPAUSAL, THYROID NODULE TECHNIQUE: Dual energy x-ray absorptiometry (DXA) was performed on a [employer] System. Regions measur ed are the AP Spine, femoral neck, and if needed forearm. COMPARISON: None FINDINGS: Lumbar Spine: Bone Mineral Density 0.940 g/cm/cm,T score -2.0, moderate osteopenia. Left Femoral Neck: Bone Mineral Density 0.6 g/cm/cm, T score -2.8, osteoporosis. Left Hip: Bone Mineral Density 0.692 g/cm/cm,T score -2.5, osteoporosis. (T score greater or equal to -1.0: NORMAL) (T score from -1.1 to -2.4: OSTEOPENIA) (T score less than or equal to -2.5 to: OSTEOPOROSIS) Impression: By WHO criteria, this patient has osteoporosis of the hip and moderate osteopenia of the lumbar spine . Patients with diagnosis of osteoporosis or osteopenia should have regular bone mineral density assess ment. For those eligible for Medicare, routine testing is allowed once every 2 years. Testing frequ ency can be increased for patients who have rapidly progressing disease or for those who are receivin g medical therapy to restore bone mass. Reviewed by: Uyen Rubio MD on 02/21/2023 12:49 PM PDT Approved by: Uyen Rubio MD on 02/21/2023 12:49 PM PDT Station ID: [id number]
--- NOTE | 2023-02-21 13:19 | Ultrasound Report ---
PROCEDURE: Head or Neck Soft Tissue INDICATIONS: POST MENOPAUSAL, THYROID NODULE TECHNIQUE: Real-time scanning was performed of the thyroid gland, with image documentation. COMPARISON: None FINDINGS: Right: Thyroid lobe measures 4.1 x 1.5 x 1.3 cm, and is homogeneous in echotexture. Left: Thyroid lobe measures 4.1 x 1.3 x 1.1 cm, and is homogenous in echotexture. Isthmus: 2 mm thick. Nodule number: One Location: Right superior pole Size: 0.5 cm, previously 0.6 cm Composition: Solid (2 points). Echogenicity: Hypoechoic (2 points). Shape: wider than tall. Margins: Smooth (0 points). Echogenic foci: Punctate echogenic foci (3 points). Total points: 7 ACR TI-RADS category: Highly suspicious (7 points or greater). Nodule number: Two Location: Right superior pole Size: 0.5 cm. Unchanged. Composition: Solid (2 points). Echogenicity: Hypoechoic (2 points). Shape: wider than tall. Margins: Smooth (0 points). Echogenic foci: None (0 points). Total points: 4 ACR TI-RADS category: Moderately suspicious (4-6 points). Nodule number: Three Location: Right superior pole Size: 0.5 cm. Unchanged. Composition: Solid (2 points). Echogenicity: Hypoechoic (2 points). Shape: wider than tall. Margins: Smooth (0 points). Echogenic foci: None (0 points). Total points: 4 ACR TI-RADS category: Moderately suspicious (4-6 points). Nodule number: Four Location: Left inferior pole Size: 1.0 cm. Unchanged. Composition: Solid (2 points). Echogenicity: Hypoechoic (2 points). Shape: wider than tall. Margins: Smooth (0 points). Echogenic foci: None (0 points). Total points: 4 ACR TI-RADS category: Moderately suspicious (4-6 points). Nodule number: 5 Location: Left inferior pole Size: 1.2 cm. Unchanged. Composition: Solid (2 points). Echogenicity: Hypoechoic (2 points). Shape: wider than tall. Margins: Smooth (0 points). Echogenic foci: None (0 points). Total points: 4 ACR TI-RADS category: Moderately suspicious (4-6 points). IMPRESSION: Unchanged thyroid nodules. No thyroid nodule meets size criteria for biopsy. ACR TI-RADS definitions and recommendations: TI-RADS 1 (benign): 0 points. FNA not needed. TI-RADS 2 (not suspicious): 2 points. FNA not needed. TI-RADS 3 (mildly suspicious): 3 points. "FNA if 2.5 cm or larger, follow up if 1.5 cm or larger (at 1, 3, and 5 years). TI-RADS 4 (moderately suspicious): 4-6 points. "FNA if 1.5 cm or larger, follow up if 1 cm or larger (at 1, 2, 3, and 5 years). TI-RADS 5 (highly suspicious): 7 points or more. "FNA if 1 cm or larger, follow up if 0.5 cm or larger (every year for 5 years). Reviewed by: Anurag Del Rio on 02/21/2023 1:17 PM PDT Approved by: Anurag Del Rio on 02/21/2023 1:17 PM PDT Station ID: [id number]
== END 2023-02-21 09:24 | disposition home or self-care (01) ==
LOC: DI 09:23
PROVIDERS: ATTEND Physician Assistant Medical
DX: E04.2 Nontoxic multinodular goiter (principal); M81.0 Age-related osteoporosis without current pathological fracture; Z78.0 Asymptomatic menopausal state

== ENCOUNTER 2023-03-16 15:20 | Outpatient (CLI) | payer MEDICARE, OTHER ==
--- NOTE | 2023-03-16 16:28 | XRAY Report ---
PROCEDURE: Hip w/Pelvis 1V RT INDICATIONS: HIP PAIN RIGHT TECHNIQUE: AP pelvis with lateral view(s) of the right hip(s). COMPARISON: None. FINDINGS: Bones: No fractures or dislocations. No suspicious bony lesions. Mild bilateral hip joint space gianni rowing and subchondral sclerosis. Degenerative changes noted in the lower lumbar spine. Soft tissues: No suspicious soft tissue calcifications or masses. IMPRESSION: Mild bilateral hip osteoarthritis Reviewed by: Julián Stinson MD on 03/16/2023 3:27 PM [email or web address] Approved by: Julián Stinson MD on 03/16/2023 3:27 PM AKDT Station ID: [id number]
== END 2023-03-16 15:21 | disposition home or self-care (01) ==
LOC: DI.N 15:20
PROVIDERS: ATTEND Family Medicine
DX: M16.0 Bilateral primary osteoarthritis of hip (principal)

== ENCOUNTER 2023-03-16 15:23 | Outpatient (CLI) | payer MEDICARE, OTHER | END 2023-03-16 15:24 | disposition home or self-care (01) | LOC: LAB.N 15:23 | PROVIDERS: ATTEND Family Medicine | DX: Z53.9 Procedure and treatment not carried out, unspecified reason (principal) | CPT/HCPCS: 82306 ==

== ENCOUNTER 2023-09-26 15:39 | Outpatient (CLI) | payer MEDICARE, OTHER ==
--- NOTE | 2023-09-28 12:26 | Mammography Report ---
BILATERAL DIGITAL SCREENING MAMMOGRAM 3D/2D: 09/26/2023 CLINICAL: Routine screening. Family history of breast cancer. Comparison is made to exams dated: 12/19/2018 mammogram, 09/30/2013 mammogram, 04/15/2012 mammogram, an d 03/27/2011 mammogram - [facility]. There are scattered areas of fibroglandular density in both breasts (category b / 25%-50% glandular t issue). No significant masses, calcifications, or other findings are seen in either breast. There has been no significant interval change. IMPRESSION: NEGATIVE There is no mammographic evidence of malignancy. A 1 year screening mammogram is recommended. Based on the Tyrer Cuzick model (a risk assessment model) the patients lifetime risk is 1.2% and her 10 year risk is 0.0%. According to the ACR, ACS, and NCCN guidelines, an annual breast MRI exam pablo g with mammogram is recommended if the patients lifetime risk is 20% or greater. This exam was interpreted at Station ID: [id number]. NOTE: For mammograms, a report in lay terms will be sent to the patient. Approximately 15% of breast malignancies will not be visualized mammographically. In the management of a palpable breast mass, a negative mammogram must not discourage biopsy of a clinically suspicious lesion. Electronically Signed By: Haily Barker M.D., PH.D pam/bibi:09/27/2023 22:00:14 letter sent: No_Letter ACR BI-RADS Category 1: Negative 3341F PARENCHYMAL PATTERN: (A) - The breast(s) demonstrate(s) scattered fibroglandular densities. BI-RADS CATEGORY: (1) - 1 Mammogram [id number] 1 year screening LATERALITY: (B)
== END 2023-09-26 15:40 | disposition home or self-care (01) ==
LOC: DI.N 15:39
DX: Z12.31 Encounter for screening mammogram for malignant neoplasm of breast (principal); Z80.3 Family history of malignant neoplasm of breast; R92.323 Mammographic fibroglandular density, bilateral breasts

== ENCOUNTER 2024-03-31 15:26 | Outpatient (CLI) | payer MEDICARE, OTHER ==
[2024-03-31 18:22] LABS: ALBUMIN 3.8 g/dL (3.2-5.5); ALBUMIN/GLOBULIN RATIO 1.3 (1.0-2.2); ALKALINE PHOSPHATASE 47 IU/L (42-121); ALT ALANINE AMINOTRANSFERASE 10 IU/L (10-60); AST ASPARTATE AMINOTRANSFERASE 16 IU/L (10-42); BASOPHILS # (AUTO) 0.1 10^3/uL (0.0-0.1); BASOPHILS % (AUTO) 1.4 %; BILIRUBIN,TOTAL 0.7 mg/dL (0.2-1.0); BUN - BLOOD UREA NITROGEN 18 mg/dL (6-20); CALCIUM 9.6 mg/dL (8.5-10.3); CARBON DIOXIDE - CO2 28 mmol/L (21-32); CHLORIDE 109 mmol/L (101-111); CHOL/HDL RATIO 2.5 (<4.4); CHOLESTEROL 150 mg/dL; CREATININE 0.8 mg/dL (0.6-1.3); EOSINOPHILS # (AUTO) 0.3 10^3/uL (0.0-0.7); EOSINOPHILS % (AUTO) 5.3 %; GFR - MDRD 69 (>89); GLUCOSE 92 mg/dL (74-104); HCT - HEMATOCRIT 38.2 % (37.0-47.0); HDL CHOLESTEROL 59 mg/dL; HGB - HEMOGLOBIN 11.4 g/dL (12.0-16.0); LDL CHOLESTEROL,CALCULATED 74 mg/dL; LDL/HDL RATIO 1.3 (<4.4); LYMPHOCYTES # (AUTO) 2.3 10^3/uL (1.5-3.5); LYMPHOCYTES % (AUTO) 37.1 %; MEAN CORPUSCULAR HEMOGLOBIN 20.6 pg (27.0-31.0); MEAN CORPUSCULAR HGB CONC 29.8 g/dL (32.0-36.0); MEAN PLATELET VOLUME 11.1 fL (7.9-10.8); MONOCYTES # (AUTO) 0.5 10^3/uL (0.0-1.0); MONOCYTES % (AUTO) 8.6 %; NEUTROPHILS % (AUTO) 47.4 %; PLT - PLATELET COUNT 156 10^3/uL (130-450); POTASSIUM 4.1 mmol/L (3.5-4.5); RED BLOOD COUNT 5.54 10^6/uL (4.20-5.40); RED CELL DISTRIBUTION WIDTH 15.9 % (12.0-15.0); SODIUM 140 mmol/L (135-145); TOTAL PROTEIN 6.7 g/dL (6.4-8.9); TRIGLYCERIDES 87 mg/dL (48-352); VLDL CHOLESTEROL 17 mg/dL; WHITE BLOOD COUNT 6.3 x10^3/uL (4.8-10.8)
[2024-03-31 18:25] LABS: SLIDE REVIEW? Indicated
[2024-03-31 18:31] LABS: THYROID STIMULATING HORMONE 1.39 uIU/mL (0.34-5.60)
[2024-03-31 19:19] LABS: PLATELET ESTIMATE, MANUAL DECREASED (<130,000) (NORMAL); PLATELET MORPHOLOGY NORMAL APPEARANCE (NORMAL); RBC MORPHOLOGY (MULTIPLE) 2+ MICROCYTOSIS (NORMAL)
[2024-03-31 20:39] LABS: ESTIMATED AVERAGE GLUCOSE 148 mg/dL (70-100); HEMOGLOBIN A1c% 6.8 % (4.27-6.07)
== END 2024-03-31 15:27 | disposition home or self-care (01) ==
LOC: LAB.N 15:26
PROVIDERS: ATTEND Physician Assistant Medical
DX: E11.9 Type 2 diabetes mellitus without complications (principal); E78.5 Hyperlipidemia, unspecified; E04.1 Nontoxic single thyroid nodule; I10 Essential (primary) hypertension
CPT/HCPCS: 36415; 80053; 80061; 83036; 83721; 84443; 85025

== ENCOUNTER 2024-06-24 17:06 | Outpatient (CLI) | payer MEDICARE, OTHER ==
[2024-06-24 21:23] LABS: CALCIUM 9.9 mg/dL (8.5-10.3); CREATININE 0.8 mg/dL (0.6-1.3); POTASSIUM 4.4 mmol/L (3.5-4.5)
== END 2024-06-24 17:07 | disposition home or self-care (01) ==
LOC: LAB.N 17:06
PROVIDERS: ATTEND Internal Medicine Cardiovascular Disease
DX: I10 Essential (primary) hypertension (principal)
CPT/HCPCS: 36415; 80048